=== PATIENT | male | born 1945 | race Caucasian/White ===

== ENCOUNTER 2022-03-06 23:20 | Inpatient (IN) ==
[2022-03-06] MEDS ORDERED: SODIUM CHLORIDE 0.9% 500 ML IV STA (23:36)
[2022-03-06] MEDS ORDERED: PROMETHAZINE 25 MG/1 ML VIAL IM PRN (23:37)
[2022-03-06] MEDS ORDERED: ACETAMINOPHEN 325 MG TABLET PO PRN (23:37)
[2022-03-07] MEDS: PIPERACILLIN/TAZOBACTAM 3,375 MG in SODIUM CHLORIDE 0.9% 100 ML IV SCH ×3 (00:15→17:37)
[2022-03-07] MEDS: LACTATED RINGERS 1,000 ML IV SCH ×4 (02:00→20:32)
[2022-03-07 05:36] LABS: Basophils % 0.5 % (0.0-0.8); Eosinophils % 0.2 % (0.00-10.9); Hematocrit 42.7 VOL% (42.0-52.0); Hemoglobin 14.4 GM/DL (14.0-18.0); Immature Granulocytes % 0.2 %; Immature Granulocytes Absolute 0.01 #; Lymphocytes # 0.9 10*3/uL (1.4-4.0); Lymphocytes % 15.1 % (21.2-54.2); Mean Corpuscular HGB Conc 33.7 GM/DL (32-36); Mean Corpuscular Volume 97.5 FL (87-102); Mean Platelet Volume 8.9 FL (9.6-12.0); Monocytes # 0.9 10*3/uL (0.11-0.8); Monocytes % 13.6 % (1.7-12.7); Neutrophils % 70.4 % (38.7-73.9); Platelet Count 240 T/CUMM (130-400); Red Blood Count 4.38 MC/CUMM (3.8-5.5); Red Cell Distribution Width 12.2 % (9.3-17.3); White Blood Count 6.2 T/CUMM (4-12)
[2022-03-07 05:54] LABS: Albumin 3.1 G/DL (3.4-5.0); Bilirubin,Total 1.2 MG/DL (0.20-1.00); Calcium 8.8 MG/DL (8.5-10.1); Osmolality,Calculated 289.3 MOS/KG (273-304); Potassium 3.5 MMOL/L (3.5-5.1); Total Protein 7.4 G/DL (6.4-8.2)
[2022-03-07] MEDS: PANTOPRAZOLE 40 MG TABLET PO SCH (08:52)
[2022-03-07] MEDS: ONDANSETRON 4 MG/2 ML VIAL IV PRN (10:31)
[2022-03-07] MEDS: MORPHINE 2 MG/1 ML SYRINGE IV PRN ×2 (13:24→19:07)
[2022-03-07] MEDS ORDERED: CLINDAMYCIN INJ 900 MG/50 ML PREMIX IV ONE (15:12)
[2022-03-07] MEDS ORDERED: ROCURONIUM 50 MG/5 ML VIAL IV ONE (15:24)
[2022-03-07] MEDS ORDERED: propofoL 200 MG/20 ML VIAL IV ONE (15:24)
[2022-03-07] MEDS ORDERED: SUCCINYLCHOLINE 200 MG/10 ML VIAL ONE (15:24)
[2022-03-07] MEDS ORDERED: LIDOCAINE 2% 5 ML VIAL ONE (15:24)
[2022-03-07] MEDS ORDERED: fentaNYL 100 MCG/2 ML VIAL ONE ×2 (15:25→16:36)
[2022-03-07] MEDS ORDERED: BUPIVACAINE MPF 0.25% 10 ML VIAL ONE (16:27)
[2022-03-07] MEDS ORDERED: DILTIAZEM 50 MG/10 ML VIAL IV ONE (16:33)
[2022-03-07] MEDS ORDERED: ONDANSETRON 4 MG/2 ML VIAL ONE (16:47)
[2022-03-07] MEDS ORDERED: SODIUM CHLORIDE 0.9% 100 ML IV ONE (16:47)
[2022-03-07] MEDS ORDERED: SEVOFLURANE 1 UNIT/15 MINUTE INH ONE ×3 (16:47→17:47)
[2022-03-07] MEDS ORDERED: EPINEPHrine 1 MG/ML VIAL ONE (16:47)
[2022-03-07] MEDS ORDERED: PHENYLEPHRINE 1 MG/10 ML SYRINGE IV ONE (16:47)
[2022-03-07] MEDS ORDERED: INDOCYANINE GREEN 25 MG VIAL IV ONE (16:52)
[2022-03-07] MEDS ORDERED: LACTATED RINGERS 1,000 ML IV ONE ×2 (16:57→18:24)
[2022-03-07] MEDS ORDERED: SUGAMMADEX 200 MG/2 ML VIAL IV ONE (17:31)
[2022-03-07] MEDS: DILTIAZEM INJ 100 MG in SODIUM CHLORIDE 0.9% 100 ML IV SCH (18:05)
[2022-03-07 18:17] LABS: Arterial Base Excess iSTAT 3 MMOL/L (-2.5-2.5); Arterial Bicarbonate iSTAT 28.9 MMOL/L (20-26); Arterial O2 Saturation iSTAT 99 % (95-100); Arterial PCO2 iSTAT 46 MM HG (35-48); Arterial PO2 iSTAT 129 MM HG (80-95); Arterial Total CO2 iSTAT 30 MMO/L (23-27); Arterial pH iSTAT 7.405 (7.35-7.45)
[2022-03-07 18:40] LABS: Basophils % 0.5 % (0.0-0.8); Eosinophils % 0.5 % (0.00-10.9); Hematocrit 47.8 VOL% (42.0-52.0); Immature Granulocytes % 0.3 %; Immature Granulocytes Absolute 0.02 #; Lymphocytes # 1.4 10*3/uL (1.4-4.0); Lymphocytes % 21.5 % (21.2-54.2); Mean Corpuscular HGB Conc 33.5 GM/DL (32-36); Mean Corpuscular Volume 97.6 FL (87-102); Mean Platelet Volume 8.6 FL (9.6-12.0); Monocytes # 0.7 10*3/uL (0.11-0.8); Neutrophils % 67.2 % (38.7-73.9); Platelet Count 256 T/CUMM (130-400); Red Cell Distribution Width 12.4 % (9.3-17.3); White Blood Count 6.5 T/CUMM (4-12)
[2022-03-07 18:55] LABS: Bilirubin,Total 1.2 MG/DL (0.20-1.00); Calcium 8.6 MG/DL (8.5-10.1); Osmolality,Calculated 281.7 MOS/KG (273-304); Potassium 3.4 MMOL/L (3.5-5.1); Total Protein 7.3 G/DL (6.4-8.2)
[2022-03-07] MEDS ORDERED: LORazepam 2 MG/1 ML VIAL IV ONE (21:30)
[2022-03-08] MEDS: DILTIAZEM INJ 100 MG in SODIUM CHLORIDE 0.9% 100 ML IV SCH ×4 (00:45→23:27)
[2022-03-08 01:10] LABS: Basophils % 0.2 % (0.0-0.8); Immature Granulocytes % 0.7 %; Immature Granulocytes Absolute 0.06 #; Lymphocytes # 0.4 10*3/uL (1.4-4.0); Lymphocytes % 4.4 % (21.2-54.2); Mean Corpuscular HGB Conc 33.3 GM/DL (32-36); Mean Corpuscular Volume 97.7 FL (87-102); Mean Platelet Volume 8.4 FL (9.6-12.0); Monocytes # 0.7 10*3/uL (0.11-0.8); Monocytes % 8.3 % (1.7-12.7); Neutrophils % 86.4 % (38.7-73.9); Platelet Count 217 T/CUMM (130-400); Red Cell Distribution Width 12.3 % (9.3-17.3); White Blood Count 8.2 T/CUMM (4-12)
[2022-03-08 01:35] LABS: Calcium 8.1 MG/DL (8.5-10.1); Potassium 3.3 MMOL/L (3.5-5.1)
[2022-03-08 01:59] LABS: Lymphocytes 4 % (20-55); Platelet Estimate Normal; Total Cells Counted 100
[2022-03-08] MEDS: LACTATED RINGERS 1,000 ML IV SCH (06:21)
[2022-03-08] MEDS: POTASSIUM CHLORIDE RIDER 10 MEQ/100 ML PREMIX IV PRN ×4 (09:54→14:17)
[2022-03-08] MEDS: ATORVASTATIN 20 MG TABLET PO SCH (11:38)
[2022-03-08] MEDS: PANTOPRAZOLE 40 MG TABLET PO SCH (11:38)
[2022-03-08] MEDS: METOPROLOL SUCCINATE XL 50 MG TABLET PO SCH (11:38)
[2022-03-08] MEDS: OMEGA 3 ACID ETHYL ESTERS 1 GM CAPSULE PO SCH ×2 (11:39→11:50)
[2022-03-08] MEDS: ENOXAPARIN 40 MG/0.4 ML SYRINGE SUBCUT SCH (13:47)
[2022-03-08] MEDS: DEXT 5% NACL 0.45% KCL 40 MEQ 40 MEQ/1,000 ML BAG IV SCH ×2 (13:51→21:56)
[2022-03-08] MEDS: ONDANSETRON 4 MG/2 ML VIAL IV PRN (15:53)
[2022-03-08] MEDS: MORPHINE 2 MG/1 ML SYRINGE IV PRN (17:28)
[2022-03-08] MEDS ORDERED: LORazepam 2 MG/1 ML VIAL IM PRN (19:52)
[2022-03-08] MEDS ORDERED: LORazepam 2 MG/1 ML VIAL ONE (19:57)
[2022-03-08] MEDS: LORazepam 2 MG/1 ML VIAL IV PRN (20:20)
[2022-03-09] MEDS: DEXT 5% NACL 0.45% KCL 40 MEQ 40 MEQ/1,000 ML BAG IV SCH (05:59)
[2022-03-09 06:23] LABS: Basophils % 0.2 % (0.0-0.8); Eosinophils # 0.1 10*3/uL (0.0-0.87); Eosinophils % 0.5 % (0.00-10.9); Hematocrit 40.5 VOL% (42.0-52.0); Hemoglobin 13.6 GM/DL (14.0-18.0); Immature Granulocytes Absolute 0.11 #; Lymphocytes # 0.9 10*3/uL (1.4-4.0); Lymphocytes % 8.2 % (21.2-54.2); Mean Corpuscular HGB Conc 33.6 GM/DL (32-36); Mean Corpuscular Volume 97.6 FL (87-102); Mean Platelet Volume 9.6 FL (9.6-12.0); Monocytes # 1.2 10*3/uL (0.11-0.8); Monocytes % 10.5 % (1.7-12.7); Neutrophils % 79.6 % (38.7-73.9); Platelet Count 185 T/CUMM (130-400); Red Blood Count 4.15 MC/CUMM (3.8-5.5); Red Cell Distribution Width 12.3 % (9.3-17.3); White Blood Count 11.5 T/CUMM (4-12)
[2022-03-09 06:36] LABS: Macrocytosis Slight; Platelet Estimate Normal
[2022-03-09 06:57] LABS: Calcium 8.3 MG/DL (8.5-10.1); Osmolality,Calculated 268.4 MOS/KG (273-304); Potassium 5.3 MMOL/L (3.5-5.1)
[2022-03-09] MEDS ORDERED: DEXTROSE 5% NACL 0.45% 1,000 ML IV SCH (08:00)
[2022-03-09] MEDS: PANTOPRAZOLE 40 MG TABLET PO SCH (10:06)
[2022-03-09] MEDS: OMEGA 3 ACID ETHYL ESTERS 1 GM CAPSULE PO SCH (10:06)
[2022-03-09] MEDS: METOPROLOL SUCCINATE XL 50 MG TABLET PO SCH (10:06)
[2022-03-09] MEDS: ATORVASTATIN 20 MG TABLET PO SCH (10:06)
[2022-03-09] MEDS: DEXTROSE 5% NACL 0.9% 1,000 ML IV SCH ×3 (12:35→20:35)
[2022-03-09] MEDS: ENOXAPARIN 40 MG/0.4 ML SYRINGE SUBCUT SCH (13:26)
[2022-03-09] MEDS: DILTIAZEM INJ 100 MG in SODIUM CHLORIDE 0.9% 100 ML IV SCH (17:38)
[2022-03-09] MEDS: LORazepam 2 MG/1 ML VIAL IV PRN (23:21)
[2022-03-10 05:15] LABS: Basophils % 0.3 % (0.0-0.8); Eosinophils # 0.2 10*3/uL (0.0-0.87); Eosinophils % 1.8 % (0.00-10.9); Hematocrit 40.4 VOL% (42.0-52.0); Hemoglobin 13.2 GM/DL (14.0-18.0); Immature Granulocytes % 0.8 %; Immature Granulocytes Absolute 0.07 #; Lymphocytes # 0.5 10*3/uL (1.4-4.0); Lymphocytes % 5.9 % (21.2-54.2); Mean Corpuscular HGB Conc 32.7 GM/DL (32-36); Mean Platelet Volume 8.9 FL (9.6-12.0); Monocytes # 0.7 10*3/uL (0.11-0.8); Monocytes % 7.4 % (1.7-12.7); Neutrophils % 83.8 % (38.7-73.9); Platelet Count 210 T/CUMM (130-400); Red Blood Count 4.08 MC/CUMM (3.8-5.5); White Blood Count 8.9 T/CUMM (4-12)
[2022-03-10] MEDS: DEXTROSE 5% NACL 0.9% 1,000 ML IV SCH (05:46)
[2022-03-10 05:48] LABS: Calcium 8.1 MG/DL (8.5-10.1); Osmolality,Calculated 275.7 MOS/KG (273-304); Potassium 3.9 MMOL/L (3.5-5.1)
[2022-03-10] MEDS: PANTOPRAZOLE 40 MG TABLET PO SCH (08:27)
[2022-03-10] MEDS: ATORVASTATIN 20 MG TABLET PO SCH (08:27)
[2022-03-10] MEDS: METOPROLOL SUCCINATE XL 50 MG TABLET PO SCH (08:27)
[2022-03-10] MEDS: OMEGA 3 ACID ETHYL ESTERS 1 GM CAPSULE PO SCH (08:27)
[2022-03-10] MEDS: ALBUTEROL/IPRATROPIUM 3 ML NEB RESP TX SCH ×3 (13:00→23:53)
[2022-03-10] MEDS: ENOXAPARIN 40 MG/0.4 ML SYRINGE SUBCUT SCH (15:01)
[2022-03-10] MEDS: guaiFENesin/DM ER 600-30 MG TABLET PO SCH ×2 (15:01→20:29)
[2022-03-10] MEDS: DILTIAZEM INJ 100 MG in SODIUM CHLORIDE 0.9% 100 ML IV SCH ×2 (18:42→23:30)
[2022-03-10] MEDS ORDERED: QUEtiapine 25 MG TABLET PO SCH (21:00)
[2022-03-10] MEDS: HALOPERIDOL 5 MG/ML AMP IM PRN (23:49)
[2022-03-11] MEDS ORDERED: LORazepam 2 MG/1 ML VIAL IV ONE (00:50)
[2022-03-11] MEDS ORDERED: LORazepam 2 MG/1 ML VIAL ONE (00:54)
[2022-03-11 05:54] LABS: Basophils % 0.4 % (0.0-0.8); Eosinophils # 0.1 10*3/uL (0.0-0.87); Eosinophils % 0.9 % (0.00-10.9); Hematocrit 41.7 VOL% (42.0-52.0); Immature Granulocytes % 0.7 %; Immature Granulocytes Absolute 0.06 #; Lymphocytes # 0.7 10*3/uL (1.4-4.0); Lymphocytes % 8.4 % (21.2-54.2); Mean Corpuscular HGB Conc 33.6 GM/DL (32-36); Mean Corpuscular Volume 95.2 FL (87-102); Mean Platelet Volume 8.7 FL (9.6-12.0); Monocytes # 1.1 10*3/uL (0.11-0.8); Monocytes % 13.8 % (1.7-12.7); Neutrophils % 75.8 % (38.7-73.9); Platelet Count 264 T/CUMM (130-400); Red Blood Count 4.38 MC/CUMM (3.8-5.5); Red Cell Distribution Width 12.1 % (9.3-17.3); White Blood Count 8.1 T/CUMM (4-12)
[2022-03-11 06:14] LABS: Calcium 8.2 MG/DL (8.5-10.1); Osmolality,Calculated 281.4 MOS/KG (273-304); Potassium 3.7 MMOL/L (3.5-5.1)
[2022-03-11] MEDS: ALBUTEROL/IPRATROPIUM 3 ML NEB RESP TX SCH ×3 (07:30→19:15)
[2022-03-11] MEDS: MORPHINE 2 MG/1 ML SYRINGE IV PRN ×2 (08:18→18:00)
[2022-03-11] MEDS: ATORVASTATIN 20 MG TABLET PO SCH (08:34)
[2022-03-11] MEDS: OMEGA 3 ACID ETHYL ESTERS 1 GM CAPSULE PO SCH (08:35)
[2022-03-11] MEDS: METOPROLOL SUCCINATE XL 50 MG TABLET PO SCH (08:35)
[2022-03-11] MEDS: guaiFENesin/DM ER 600-30 MG TABLET PO SCH ×2 (08:35→20:23)
[2022-03-11] MEDS: PANTOPRAZOLE 40 MG TABLET PO SCH (08:35)
[2022-03-11] MEDS: HALOPERIDOL 5 MG/ML AMP IM PRN (08:42)
[2022-03-11] MEDS: DILTIAZEM INJ 100 MG in SODIUM CHLORIDE 0.9% 100 ML IV SCH ×3 (08:52→21:16)
[2022-03-11] MEDS ORDERED: OLANZapine 10 MG VIAL IM ONE (09:32)
[2022-03-11] MEDS ORDERED: METOPROLOL TARTRATE 5 MG/5 ML VIAL IV ONE ×2 (09:33→14:22)
[2022-03-11] MEDS ORDERED: KETOROLAC 30 MG/1 ML VIAL IV ONE (10:12)
[2022-03-11] MEDS: PIPERACILLIN/TAZOBACTAM 3,375 MG in SODIUM CHLORIDE 0.9% 100 ML IV SCH ×2 (10:50→17:22)
[2022-03-11] MEDS: PANTOPRAZOLE 40 MG VIAL IV SCH ×2 (10:55→21:16)
[2022-03-11] MEDS: VANCOMYCIN INJ 1,250 MG in SODIUM CHLORIDE 0.9% 250 ML IV SCH ×2 (11:03→23:38)
[2022-03-11] MEDS: METOPROLOL TARTRATE 5 MG/5 ML VIAL IV SCH ×3 (12:11→23:26)
[2022-03-11] MEDS: ENOXAPARIN 40 MG/0.4 ML SYRINGE SUBCUT SCH (13:08)
[2022-03-11] MEDS: FAT EMULSION 20% 250 ML IV SCH (14:05)
[2022-03-11] MEDS ORDERED: DIGOXIN 0.5 MG/2 ML AMP IV ONE ×2 (14:41→15:15)
[2022-03-11] MEDS: MULTIVITAMIN INJ 10 ML in AMINO ACIDS/DEXT/LYTES 4.25-5% 2,000 ML IV SCH (17:13)
[2022-03-11] MEDS: ACETAMINOPHEN 650 MG SUPP RECTAL PRN (17:33)
[2022-03-11] MEDS: OLANZapine 10 MG VIAL IM PRN (17:35)
[2022-03-12] MEDS: PIPERACILLIN/TAZOBACTAM 3,375 MG in SODIUM CHLORIDE 0.9% 100 ML IV SCH ×3 (02:50→17:33)
[2022-03-12] MEDS: METOPROLOL TARTRATE 5 MG/5 ML VIAL IV SCH ×3 (05:12→17:27)
[2022-03-12 05:14] LABS: Basophils % 0.3 % (0.0-0.8); Eosinophils # 0.2 10*3/uL (0.0-0.87); Eosinophils % 2.1 % (0.00-10.9); Hematocrit 36.8 VOL% (42.0-52.0); Hemoglobin 12.4 GM/DL (14.0-18.0); Immature Granulocytes % 0.7 %; Immature Granulocytes Absolute 0.08 #; Lymphocytes # 0.8 10*3/uL (1.4-4.0); Lymphocytes % 7.6 % (21.2-54.2); Mean Corpuscular HGB Conc 33.7 GM/DL (32-36); Mean Corpuscular Volume 96.1 FL (87-102); Mean Platelet Volume 8.6 FL (9.6-12.0); Monocytes % 9.2 % (1.7-12.7); Neutrophils % 80.1 % (38.7-73.9); Platelet Count 251 T/CUMM (130-400); Red Blood Count 3.83 MC/CUMM (3.8-5.5); Red Cell Distribution Width 12.4 % (9.3-17.3); White Blood Count 10.7 T/CUMM (4-12)
[2022-03-12 05:36] LABS: Calcium 7.9 MG/DL (8.5-10.1); Osmolality,Calculated 286.1 MOS/KG (273-304); Potassium 3.7 MMOL/L (3.5-5.1)
[2022-03-12 05:40] LABS: Phosphorous 2.4 MG/DL (2.5-4.9)
[2022-03-12] MEDS: ALBUTEROL/IPRATROPIUM 3 ML NEB RESP TX SCH ×4 (06:54→19:10)
[2022-03-12] MEDS: PANTOPRAZOLE 40 MG VIAL IV SCH ×2 (10:36→20:26)
[2022-03-12] MEDS: OMEGA 3 ACID ETHYL ESTERS 1 GM CAPSULE PO SCH (12:18)
[2022-03-12] MEDS: ATORVASTATIN 20 MG TABLET PO SCH (12:18)
[2022-03-12] MEDS: guaiFENesin/DM ER 600-30 MG TABLET PO SCH ×2 (12:18→20:27)
[2022-03-12] MEDS: ENOXAPARIN 40 MG/0.4 ML SYRINGE SUBCUT SCH (12:27)
[2022-03-12] MEDS: VANCOMYCIN INJ 1,250 MG in SODIUM CHLORIDE 0.9% 250 ML IV SCH ×2 (14:12→23:04)
[2022-03-12] MEDS: FAT EMULSION 20% 250 ML IV SCH (14:45)
[2022-03-12] MEDS: MULTIVITAMIN INJ 10 ML in AMINO ACIDS/DEXT/LYTES 4.25-5% 2,000 ML IV SCH (14:45)
[2022-03-12] MEDS: DILTIAZEM INJ 100 MG in SODIUM CHLORIDE 0.9% 100 ML IV SCH (17:01)
[2022-03-13] MEDS: ALBUTEROL/IPRATROPIUM 3 ML NEB RESP TX SCH ×3 (00:05→07:00)
[2022-03-13] MEDS: METOPROLOL TARTRATE 5 MG/5 ML VIAL IV SCH ×4 (00:37→18:40)
[2022-03-13] MEDS: PIPERACILLIN/TAZOBACTAM 3,375 MG in SODIUM CHLORIDE 0.9% 100 ML IV SCH ×3 (02:04→23:35)
[2022-03-13 05:15] LABS: Basophils % 0.4 % (0.0-0.8); Eosinophils # 0.4 10*3/uL (0.0-0.87); Eosinophils % 4.3 % (0.00-10.9); Hematocrit 38.2 VOL% (42.0-52.0); Hemoglobin 12.9 GM/DL (14.0-18.0); Immature Granulocytes % 1.4 %; Immature Granulocytes Absolute 0.13 #; Lymphocytes # 1.2 10*3/uL (1.4-4.0); Lymphocytes % 12.6 % (21.2-54.2); Mean Corpuscular HGB Conc 33.8 GM/DL (32-36); Mean Corpuscular Volume 96.5 FL (87-102); Mean Platelet Volume 8.9 FL (9.6-12.0); Monocytes # 0.8 10*3/uL (0.11-0.8); Monocytes % 8.4 % (1.7-12.7); Neutrophils % 72.9 % (38.7-73.9); Platelet Count 283 T/CUMM (130-400); Red Blood Count 3.96 MC/CUMM (3.8-5.5); Red Cell Distribution Width 12.5 % (9.3-17.3); White Blood Count 9.6 T/CUMM (4-12)
[2022-03-13 05:43] LABS: Calcium 8.1 MG/DL (8.5-10.1); Osmolality,Calculated 286.1 MOS/KG (273-304); Potassium 3.8 MMOL/L (3.5-5.1)
[2022-03-13] MEDS: ATORVASTATIN 20 MG TABLET PO SCH (08:11)
[2022-03-13] MEDS: guaiFENesin/DM ER 600-30 MG TABLET PO SCH ×2 (08:11→22:21)
[2022-03-13] MEDS: OMEGA 3 ACID ETHYL ESTERS 1 GM CAPSULE PO SCH (08:11)
[2022-03-13] MEDS: PANTOPRAZOLE 40 MG VIAL IV SCH ×2 (09:07→22:12)
[2022-03-13] MEDS: FUROSEMIDE 40 MG/4 ML VIAL IV SCH ×2 (11:45→14:00)
[2022-03-13] MEDS: HALOPERIDOL 5 MG/ML AMP IM PRN (11:45)
[2022-03-13] MEDS ORDERED: DEXTROSE 10% 250 ML IV ONE (12:12)
[2022-03-13] MEDS: VANCOMYCIN INJ 1,250 MG in SODIUM CHLORIDE 0.9% 250 ML IV SCH ×2 (13:06→23:01)
[2022-03-13] MEDS: OLANZapine 10 MG VIAL IM PRN (13:06)
[2022-03-13] MEDS: ENOXAPARIN 40 MG/0.4 ML SYRINGE SUBCUT SCH (13:08)
[2022-03-13] MEDS ORDERED: LEVALBUTEROL 1.25 MG/3 ML NEB RESP TX PRN (13:28)
[2022-03-13] MEDS: MORPHINE 2 MG/1 ML SYRINGE IV PRN (13:40)
[2022-03-13] MEDS ORDERED: METOPROLOL TARTRATE 5 MG/5 ML VIAL IV ONE (13:46)
[2022-03-13] MEDS ORDERED: DIGOXIN 0.5 MG/2 ML AMP IV ONE ×2 (13:54)
[2022-03-13] MEDS: DILTIAZEM INJ 100 MG in SODIUM CHLORIDE 0.9% 100 ML IV SCH ×2 (15:25→20:58)
[2022-03-13] MEDS: MULTIVITAMIN INJ 10 ML in AMINO ACIDS/DEXT/LYTES 4.25-5% 2,000 ML IV SCH (18:37)
[2022-03-13] MEDS: FAT EMULSION 20% 250 ML IV SCH (18:37)
[2022-03-13] MEDS: ENOXAPARIN 80 MG/0.8 ML SYRINGE SUBCUT SCH (23:09)
[2022-03-14] MEDS: METOPROLOL TARTRATE 5 MG/5 ML VIAL IV SCH ×4 (01:12→17:32)
[2022-03-14] MEDS: PIPERACILLIN/TAZOBACTAM 3,375 MG in SODIUM CHLORIDE 0.9% 100 ML IV SCH ×3 (03:14→17:33)
[2022-03-14] MEDS: DILTIAZEM INJ 100 MG in SODIUM CHLORIDE 0.9% 100 ML IV SCH ×3 (04:58→17:00)
[2022-03-14 05:52] LABS: Basophils # 0.1 10*3/uL (0.0-0.2); Basophils % 0.5 % (0.0-0.8); Eosinophils # 0.4 10*3/uL (0.0-0.87); Eosinophils % 3.1 % (0.00-10.9); Hematocrit 43.2 VOL% (42.0-52.0); Hemoglobin 14.4 GM/DL (14.0-18.0); Immature Granulocytes Absolute 0.26 #; Lymphocytes # 1.6 10*3/uL (1.4-4.0); Lymphocytes % 12.5 % (21.2-54.2); Mean Corpuscular HGB Conc 33.3 GM/DL (32-36); Mean Corpuscular Volume 96.6 FL (87-102); Mean Platelet Volume 9.4 FL (9.6-12.0); Monocytes % 7.9 % (1.7-12.7); Platelet Count 362 T/CUMM (130-400); Red Blood Count 4.47 MC/CUMM (3.8-5.5); Red Cell Distribution Width 12.5 % (9.3-17.3); White Blood Count 12.9 T/CUMM (4-12)
[2022-03-14 06:10] LABS: Calcium 8.5 MG/DL (8.5-10.1); Osmolality,Calculated 286.5 MOS/KG (273-304); Potassium 3.6 MMOL/L (3.5-5.1)
[2022-03-14 06:22] LABS: Platelet Estimate Adequate
[2022-03-14] MEDS: MULTIVITAMIN INJ 10 ML in AMINO ACIDS/DEXT/LYTES 4.25-5% 2,000 ML IV SCH ×2 (08:30→14:44)
[2022-03-14] MEDS: OMEGA 3 ACID ETHYL ESTERS 1 GM CAPSULE PO SCH (08:41)
[2022-03-14] MEDS: guaiFENesin/DM ER 600-30 MG TABLET PO SCH ×2 (08:41→21:14)
[2022-03-14] MEDS: ATORVASTATIN 20 MG TABLET PO SCH (08:41)
[2022-03-14] MEDS: ENOXAPARIN 80 MG/0.8 ML SYRINGE SUBCUT SCH ×2 (10:04→20:17)
[2022-03-14] MEDS: PANTOPRAZOLE 40 MG VIAL IV SCH ×2 (10:13→20:18)
[2022-03-14] MEDS: FUROSEMIDE 40 MG/4 ML VIAL IV SCH (10:15)
[2022-03-14] MEDS: ACETAMINOPHEN 650 MG SUPP RECTAL PRN (11:24)
[2022-03-14] MEDS: HALOPERIDOL 5 MG/ML AMP IM PRN ×2 (13:19→20:18)
[2022-03-14] MEDS: FAT EMULSION 20% 250 ML IV SCH (14:38)
[2022-03-14] MEDS: OLANZapine 10 MG VIAL IM PRN (23:39)
[2022-03-15] MEDS: METOPROLOL TARTRATE 5 MG/5 ML VIAL IV SCH ×5 (00:26→23:28)
[2022-03-15] MEDS: DILTIAZEM INJ 100 MG in SODIUM CHLORIDE 0.9% 100 ML IV SCH ×4 (01:45→17:36)
[2022-03-15] MEDS: PIPERACILLIN/TAZOBACTAM 3,375 MG in SODIUM CHLORIDE 0.9% 100 ML IV SCH ×3 (01:47→17:50)
[2022-03-15] MEDS: HALOPERIDOL 5 MG/ML AMP IM PRN ×3 (04:24→23:48)
[2022-03-15 05:03] LABS: Basophils # 0.1 10*3/uL (0.0-0.2); Basophils % 0.6 % (0.0-0.8); Eosinophils # 0.5 10*3/uL (0.0-0.87); Eosinophils % 4.1 % (0.00-10.9); Hematocrit 41.9 VOL% (42.0-52.0); Hemoglobin 14.1 GM/DL (14.0-18.0); Immature Granulocytes % 1.9 %; Immature Granulocytes Absolute 0.22 #; Lymphocytes # 1.6 10*3/uL (1.4-4.0); Lymphocytes % 14.1 % (21.2-54.2); Mean Corpuscular HGB Conc 33.7 GM/DL (32-36); Mean Platelet Volume 8.7 FL (9.6-12.0); Neutrophils % 70.3 % (38.7-73.9); Platelet Count 344 T/CUMM (130-400); Red Blood Count 4.41 MC/CUMM (3.8-5.5); Red Cell Distribution Width 12.4 % (9.3-17.3); White Blood Count 11.6 T/CUMM (4-12)
[2022-03-15 05:30] LABS: Calcium 8.3 MG/DL (8.5-10.1); Osmolality,Calculated 287.5 MOS/KG (273-304); Potassium 3.5 MMOL/L (3.5-5.1)
[2022-03-15] MEDS: ENOXAPARIN 80 MG/0.8 ML SYRINGE SUBCUT SCH ×2 (08:57→20:59)
[2022-03-15] MEDS: FUROSEMIDE 40 MG/4 ML VIAL IV SCH (09:01)
[2022-03-15] MEDS: PANTOPRAZOLE 40 MG VIAL IV SCH ×2 (09:03→20:59)
[2022-03-15] MEDS: ATORVASTATIN 20 MG TABLET PO SCH (09:04)
[2022-03-15] MEDS: OMEGA 3 ACID ETHYL ESTERS 1 GM CAPSULE PO SCH (09:04)
[2022-03-15] MEDS: guaiFENesin/DM ER 600-30 MG TABLET PO SCH ×2 (09:04→20:59)
[2022-03-15] MEDS: MULTIVITAMIN INJ 10 ML in AMINO ACIDS/DEXT/LYTES 4.25-5% 2,000 ML IV SCH (13:05)
[2022-03-15] MEDS: FAT EMULSION 20% 250 ML IV SCH (13:06)
[2022-03-16] MEDS: PIPERACILLIN/TAZOBACTAM 3,375 MG in SODIUM CHLORIDE 0.9% 100 ML IV SCH ×3 (01:28→18:15)
[2022-03-16] MEDS ORDERED: MORPHINE 2 MG/1 ML SYRINGE IV ONE (01:32)
[2022-03-16] MEDS: METOPROLOL TARTRATE 5 MG/5 ML VIAL IV SCH ×4 (05:09→23:55)
[2022-03-16 05:44] LABS: Basophils # 0.1 10*3/uL (0.0-0.2); Basophils % 0.6 % (0.0-0.8); Eosinophils # 0.4 10*3/uL (0.0-0.87); Eosinophils % 3.1 % (0.00-10.9); Hematocrit 41.2 VOL% (42.0-52.0); Hemoglobin 13.9 GM/DL (14.0-18.0); Immature Granulocytes % 2.1 %; Immature Granulocytes Absolute 0.27 #; Lymphocytes # 1.7 10*3/uL (1.4-4.0); Lymphocytes % 13.6 % (21.2-54.2); Mean Corpuscular HGB Conc 33.7 GM/DL (32-36); Mean Corpuscular Volume 95.2 FL (87-102); Mean Platelet Volume 8.9 FL (9.6-12.0); Monocytes # 1.1 10*3/uL (0.11-0.8); Monocytes % 8.6 % (1.7-12.7); Platelet Count 407 T/CUMM (130-400); Red Blood Count 4.33 MC/CUMM (3.8-5.5); Red Cell Distribution Width 12.1 % (9.3-17.3); White Blood Count 12.8 T/CUMM (4-12)
[2022-03-16 06:14] LABS: Calcium 8.4 MG/DL (8.5-10.1); Osmolality,Calculated 286.5 MOS/KG (273-304); Potassium 3.5 MMOL/L (3.5-5.1)
[2022-03-16] MEDS: DILTIAZEM INJ 100 MG in SODIUM CHLORIDE 0.9% 100 ML IV SCH ×3 (08:23→20:18)
[2022-03-16] MEDS: ENOXAPARIN 80 MG/0.8 ML SYRINGE SUBCUT SCH ×2 (09:59→20:19)
[2022-03-16] MEDS: PANTOPRAZOLE 40 MG VIAL IV SCH ×2 (10:02→20:19)
[2022-03-16] MEDS: FUROSEMIDE 40 MG/4 ML VIAL IV SCH (10:04)
[2022-03-16] MEDS: ATORVASTATIN 20 MG TABLET PO SCH (10:07)
[2022-03-16] MEDS: guaiFENesin/DM ER 600-30 MG TABLET PO SCH ×2 (10:07→20:19)
[2022-03-16] MEDS: OMEGA 3 ACID ETHYL ESTERS 1 GM CAPSULE PO SCH (10:07)
[2022-03-16] MEDS: MULTIVITAMIN INJ 10 ML in AMINO ACIDS/DEXT/LYTES 4.25-5% 2,000 ML IV SCH (10:40)
[2022-03-16] MEDS: ACETAMINOPHEN 650 MG SUPP RECTAL PRN ×2 (11:17→18:12)
[2022-03-16] MEDS: FAT EMULSION 20% 250 ML IV SCH (14:38)
[2022-03-17] MEDS: PIPERACILLIN/TAZOBACTAM 3,375 MG in SODIUM CHLORIDE 0.9% 100 ML IV SCH ×2 (01:11→09:29)
[2022-03-17] MEDS: METOPROLOL TARTRATE 5 MG/5 ML VIAL IV SCH ×3 (05:18→17:03)
[2022-03-17 06:14] LABS: Basophils # 0.1 10*3/uL (0.0-0.2); Basophils % 0.6 % (0.0-0.8); Eosinophils # 0.4 10*3/uL (0.0-0.87); Eosinophils % 2.7 % (0.00-10.9); Hematocrit 41.2 VOL% (42.0-52.0); Hemoglobin 14.1 GM/DL (14.0-18.0); Immature Granulocytes % 1.8 %; Immature Granulocytes Absolute 0.29 #; Lymphocytes # 1.8 10*3/uL (1.4-4.0); Lymphocytes % 11.6 % (21.2-54.2); Mean Corpuscular HGB Conc 34.2 GM/DL (32-36); Mean Corpuscular Volume 94.1 FL (87-102); Mean Platelet Volume 8.9 FL (9.6-12.0); Monocytes # 1.2 10*3/uL (0.11-0.8); Monocytes % 7.7 % (1.7-12.7); Neutrophils % 75.6 % (38.7-73.9); Platelet Count 457 T/CUMM (130-400); Red Blood Count 4.38 MC/CUMM (3.8-5.5); Red Cell Distribution Width 12.2 % (9.3-17.3); White Blood Count 15.8 T/CUMM (4-12)
[2022-03-17] MEDS: DILTIAZEM INJ 100 MG in SODIUM CHLORIDE 0.9% 100 ML IV SCH ×2 (06:28→20:58)
[2022-03-17 06:39] LABS: Calcium 8.4 MG/DL (8.5-10.1); Osmolality,Calculated 285.5 MOS/KG (273-304); Potassium 3.6 MMOL/L (3.5-5.1)
[2022-03-17] MEDS ORDERED: ZIPRASIDONE 20 MG/1 ML VIAL IM PRN (08:00)
[2022-03-17] MEDS: MULTIVITAMIN INJ 10 ML in AMINO ACIDS/DEXT/LYTES 4.25-5% 2,000 ML IV SCH (09:29)
[2022-03-17] MEDS: guaiFENesin/DM ER 600-30 MG TABLET PO SCH ×2 (09:30→22:04)
[2022-03-17] MEDS: OMEGA 3 ACID ETHYL ESTERS 1 GM CAPSULE PO SCH (09:30)
[2022-03-17] MEDS: ENOXAPARIN 80 MG/0.8 ML SYRINGE SUBCUT SCH ×2 (09:32→22:04)
[2022-03-17] MEDS: FUROSEMIDE 40 MG/4 ML VIAL IV SCH (09:33)
[2022-03-17] MEDS: PANTOPRAZOLE 40 MG VIAL IV SCH ×2 (09:33→22:40)
[2022-03-17] MEDS: ATORVASTATIN 20 MG TABLET PO SCH (09:33)
[2022-03-17 12:05] LABS: Urine Appearance Clear (Clear); Urine Color Yellow (Yellow); Urine pH 5.5 (4.5-8.0)
[2022-03-17 12:06] LABS: Bilirubin,Urine Negative (Negative); Blood, Urine Trace mg/dL (Negative); Glucose,Urine (UA) Negative (Negative); Ketones,Urine Negative (Negative); Nitrite,Urine Negative (Negative); Protein,Urine 30 mg/dL (Negative); Urine Specific Gravity >= 1.030 (1.001-1.035); Urine Urobilinogen 0.2 eU/dL (<2.0)
[2022-03-17 12:07] LABS: Bacteria,Urine Occasional /HPF (Few); Hyaline Casts,Urine 1 /LPF (0-3); Mucus,Urine Occasional /LPF (Occasional)
[2022-03-17] MEDS: LEVOFLOXACIN INJ 750 MG/150 ML PREMIX IV SCH (13:04)
[2022-03-17] MEDS: FAT EMULSION 20% 250 ML IV SCH (13:07)
[2022-03-17] MEDS ORDERED: METOPROLOL TARTRATE 5 MG/5 ML VIAL IV ONE (14:12)
[2022-03-17] MEDS: DIGOXIN 0.5 MG/2 ML AMP IV ONE ×2 (16:24→17:51)
[2022-03-18] MEDS: METOPROLOL TARTRATE 5 MG/5 ML VIAL IV SCH ×3 (00:31→12:38)
[2022-03-18 04:37] LABS: Basophils # 0.1 10*3/uL (0.0-0.2); Basophils % 0.9 % (0.0-0.8); Eosinophils # 0.3 10*3/uL (0.0-0.87); Hematocrit 42.5 VOL% (42.0-52.0); Hemoglobin 14.4 GM/DL (14.0-18.0); Immature Granulocytes % 2.2 %; Immature Granulocytes Absolute 0.29 #; Lymphocytes # 2.2 10*3/uL (1.4-4.0); Lymphocytes % 16.6 % (21.2-54.2); Mean Corpuscular HGB Conc 33.9 GM/DL (32-36); Mean Corpuscular Volume 94.2 FL (87-102); Mean Platelet Volume 8.9 FL (9.6-12.0); Monocytes # 1.3 10*3/uL (0.11-0.8); Monocytes % 9.9 % (1.7-12.7); Neutrophils % 68.4 % (38.7-73.9); Platelet Count 498 T/CUMM (130-400); Red Blood Count 4.51 MC/CUMM (3.8-5.5); Red Cell Distribution Width 12.2 % (9.3-17.3); White Blood Count 13.4 T/CUMM (4-12)
[2022-03-18 04:54] LABS: Calcium 8.6 MG/DL (8.5-10.1); Osmolality,Calculated 285.7 MOS/KG (273-304); Potassium 3.6 MMOL/L (3.5-5.1)
[2022-03-18] MEDS: MULTIVITAMIN INJ 10 ML in AMINO ACIDS/DEXT/LYTES 4.25-5% 2,000 ML IV SCH (05:17)
[2022-03-18] MEDS: ENOXAPARIN 80 MG/0.8 ML SYRINGE SUBCUT SCH ×2 (11:59→21:47)
[2022-03-18] MEDS: FUROSEMIDE 40 MG/4 ML VIAL IV SCH (12:02)
[2022-03-18] MEDS: PANTOPRAZOLE 40 MG VIAL IV SCH ×2 (12:06→21:47)
[2022-03-18] MEDS: guaiFENesin/DM ER 600-30 MG TABLET PO SCH ×2 (12:11→21:38)
[2022-03-18] MEDS: ATORVASTATIN 20 MG TABLET PO SCH (12:15)
[2022-03-18] MEDS: OMEGA 3 ACID ETHYL ESTERS 1 GM CAPSULE PO SCH (12:18)
[2022-03-18] MEDS: ACETAMINOPHEN 650 MG SUPP RECTAL PRN (15:39)
[2022-03-18] MEDS: FAT EMULSION 20% 250 ML IV SCH (15:59)
[2022-03-18] MEDS: LEVOFLOXACIN INJ 750 MG/150 ML PREMIX IV SCH (16:00)
[2022-03-18] MEDS: METOPROLOL TARTRATE 25 MG TABLET PO SCH (21:38)
[2022-03-19] MEDS: DILTIAZEM INJ 100 MG in SODIUM CHLORIDE 0.9% 100 ML IV SCH (04:31)
[2022-03-19 05:42] LABS: Basophils # 0.1 10*3/uL (0.0-0.2); Basophils % 0.6 % (0.0-0.8); Eosinophils # 0.2 10*3/uL (0.0-0.87); Hematocrit 42.5 VOL% (42.0-52.0); Hemoglobin 14.3 GM/DL (14.0-18.0); Immature Granulocytes % 1.4 %; Immature Granulocytes Absolute 0.24 #; Lymphocytes # 2.1 10*3/uL (1.4-4.0); Lymphocytes % 12.3 % (21.2-54.2); Mean Corpuscular HGB Conc 33.6 GM/DL (32-36); Mean Platelet Volume 8.8 FL (9.6-12.0); Monocytes # 1.6 10*3/uL (0.11-0.8); Monocytes % 9.5 % (1.7-12.7); Neutrophils % 75.2 % (38.7-73.9); Platelet Count 544 T/CUMM (130-400); Red Blood Count 4.52 MC/CUMM (3.8-5.5); Red Cell Distribution Width 12.3 % (9.3-17.3); White Blood Count 16.7 T/CUMM (4-12)
[2022-03-19 06:12] LABS: Calcium 8.7 MG/DL (8.5-10.1); Osmolality,Calculated 284.7 MOS/KG (273-304); Potassium 4.3 MMOL/L (3.5-5.1)
[2022-03-19] MEDS: FUROSEMIDE 40 MG/4 ML VIAL IV SCH (11:18)
[2022-03-19] MEDS: PANTOPRAZOLE 40 MG VIAL IV SCH ×2 (11:25→21:20)
[2022-03-19] MEDS: ENOXAPARIN 80 MG/0.8 ML SYRINGE SUBCUT SCH ×2 (11:28→21:20)
[2022-03-19] MEDS: MULTIVITAMIN INJ 10 ML in AMINO ACIDS/DEXT/LYTES 4.25-5% 2,000 ML IV SCH (11:32)
[2022-03-19] MEDS: LEVOFLOXACIN INJ 750 MG/150 ML PREMIX IV SCH (16:31)
[2022-03-19] MEDS: FAT EMULSION 20% 250 ML IV SCH (16:31)
[2022-03-19] MEDS: ATORVASTATIN 20 MG TABLET PO SCH (17:09)
[2022-03-19] MEDS: METOPROLOL TARTRATE 25 MG TABLET PO SCH ×2 (17:09→21:20)
[2022-03-19] MEDS: OMEGA 3 ACID ETHYL ESTERS 1 GM CAPSULE PO SCH (17:09)
[2022-03-19] MEDS: DILTIAZEM 60 MG TABLET PO SCH ×3 (17:09→21:20)
[2022-03-19] MEDS: guaiFENesin/DM ER 600-30 MG TABLET PO SCH ×2 (17:09→21:20)
[2022-03-19] MEDS: ACETAMINOPHEN 650 MG SUPP RECTAL PRN (17:10)
[2022-03-20] MEDS: MULTIVITAMIN INJ 10 ML in AMINO ACIDS/DEXT/LYTES 4.25-5% 2,000 ML IV SCH ×3 (00:47→18:43)
[2022-03-20 04:06] LABS: Basophils # 0.1 10*3/uL (0.0-0.2); Basophils % 0.5 % (0.0-0.8); Eosinophils # 0.2 10*3/uL (0.0-0.87); Eosinophils % 1.2 % (0.00-10.9); Hematocrit 42.4 VOL% (42.0-52.0); Hemoglobin 14.5 GM/DL (14.0-18.0); Immature Granulocytes % 1.1 %; Immature Granulocytes Absolute 0.15 #; Lymphocytes # 2.2 10*3/uL (1.4-4.0); Lymphocytes % 16.1 % (21.2-54.2); Mean Corpuscular HGB Conc 34.2 GM/DL (32-36); Mean Corpuscular Volume 94.2 FL (87-102); Mean Platelet Volume 9.2 FL (9.6-12.0); Monocytes # 1.4 10*3/uL (0.11-0.8); Monocytes % 10.7 % (1.7-12.7); Neutrophils % 70.4 % (38.7-73.9); Platelet Count 550 T/CUMM (130-400); Red Cell Distribution Width 12.2 % (9.3-17.3); White Blood Count 13.3 T/CUMM (4-12)
[2022-03-20 04:24] LABS: Calcium 8.7 MG/DL (8.5-10.1); Osmolality,Calculated 284.8 MOS/KG (273-304); Potassium 3.6 MMOL/L (3.5-5.1)
[2022-03-20] MEDS: guaiFENesin/DM ER 600-30 MG TABLET PO SCH ×2 (09:30→21:45)
[2022-03-20] MEDS: ATORVASTATIN 20 MG TABLET PO SCH (09:30)
[2022-03-20] MEDS: DILTIAZEM 60 MG TABLET PO SCH ×4 (09:30→21:45)
[2022-03-20] MEDS: OMEGA 3 ACID ETHYL ESTERS 1 GM CAPSULE PO SCH (09:30)
[2022-03-20] MEDS: METOPROLOL TARTRATE 25 MG TABLET PO SCH ×2 (09:30→21:45)
[2022-03-20] MEDS: ENOXAPARIN 80 MG/0.8 ML SYRINGE SUBCUT SCH ×2 (09:31→21:45)
[2022-03-20] MEDS: PANTOPRAZOLE 40 MG VIAL IV SCH ×2 (09:32→21:45)
[2022-03-20] MEDS: FUROSEMIDE 40 MG/4 ML VIAL IV SCH (09:32)
[2022-03-20] MEDS: LEVOFLOXACIN INJ 750 MG/150 ML PREMIX IV SCH (13:09)
[2022-03-20] MEDS: FAT EMULSION 20% 250 ML IV SCH (13:14)
[2022-03-20] MEDS: ONDANSETRON 4 MG/2 ML VIAL IV PRN (13:27)
[2022-03-21 05:42] LABS: Basophils # 0.1 10*3/uL (0.0-0.2); Basophils % 0.8 % (0.0-0.8); Eosinophils # 0.2 10*3/uL (0.0-0.87); Eosinophils % 1.7 % (0.00-10.9); Hematocrit 42.4 VOL% (42.0-52.0); Hemoglobin 14.3 GM/DL (14.0-18.0); Immature Granulocytes % 1.4 %; Immature Granulocytes Absolute 0.18 #; Lymphocytes # 2.1 10*3/uL (1.4-4.0); Mean Corpuscular HGB Conc 33.7 GM/DL (32-36); Mean Corpuscular Volume 94.9 FL (87-102); Mean Platelet Volume 9.1 FL (9.6-12.0); Monocytes # 1.6 10*3/uL (0.11-0.8); Neutrophils % 68.1 % (38.7-73.9); Platelet Count 532 T/CUMM (130-400); Red Blood Count 4.47 MC/CUMM (3.8-5.5); Red Cell Distribution Width 12.4 % (9.3-17.3); White Blood Count 13.3 T/CUMM (4-12)
[2022-03-21 06:01] LABS: Calcium 8.7 MG/DL (8.5-10.1); Osmolality,Calculated 284.8 MOS/KG (273-304); Potassium 3.5 MMOL/L (3.5-5.1)
[2022-03-21] MEDS: PANTOPRAZOLE 40 MG VIAL IV SCH ×2 (08:15→21:10)
[2022-03-21] MEDS: METOPROLOL TARTRATE 25 MG TABLET PO SCH ×2 (08:16→21:10)
[2022-03-21] MEDS: ATORVASTATIN 20 MG TABLET PO SCH (08:16)
[2022-03-21] MEDS: guaiFENesin/DM ER 600-30 MG TABLET PO SCH ×2 (08:16→21:10)
[2022-03-21] MEDS: DILTIAZEM 60 MG TABLET PO SCH ×4 (08:16→21:10)
[2022-03-21] MEDS: FUROSEMIDE 40 MG TABLET PO SCH (08:16)
[2022-03-21] MEDS: OMEGA 3 ACID ETHYL ESTERS 1 GM CAPSULE PO SCH (08:16)
[2022-03-21] MEDS: ENOXAPARIN 80 MG/0.8 ML SYRINGE SUBCUT SCH ×2 (08:17→21:10)
[2022-03-21] MEDS: LEVOFLOXACIN INJ 750 MG/150 ML PREMIX IV SCH (12:27)
[2022-03-21] MEDS: FAT EMULSION 20% 250 ML IV SCH (14:22)
[2022-03-21] MEDS: MULTIVITAMIN INJ 10 ML in AMINO ACIDS/DEXT/LYTES 4.25-5% 2,000 ML IV SCH (15:11)
[2022-03-21] MEDS: risperiDONE 0.5 MG TABLET PO SCH (17:34)
[2022-03-22 06:00] LABS: Basophils # 0.1 10*3/uL (0.0-0.2); Basophils % 1.2 % (0.0-0.8); Eosinophils # 0.3 10*3/uL (0.0-0.87); Eosinophils % 3.2 % (0.00-10.9); Hemoglobin 13.7 GM/DL (14.0-18.0); Immature Granulocytes % 1.3 %; Immature Granulocytes Absolute 0.13 #; Lymphocytes # 1.8 10*3/uL (1.4-4.0); Lymphocytes % 17.9 % (21.2-54.2); Mean Corpuscular HGB Conc 33.4 GM/DL (32-36); Mean Platelet Volume 9.4 FL (9.6-12.0); Monocytes % 10.5 % (1.7-12.7); Neutrophils % 65.9 % (38.7-73.9); Platelet Count 472 T/CUMM (130-400); Red Blood Count 4.27 MC/CUMM (3.8-5.5); Red Cell Distribution Width 12.5 % (9.3-17.3); White Blood Count 9.8 T/CUMM (4-12)
[2022-03-22 06:22] LABS: Calcium 8.2 MG/DL (8.5-10.1); Osmolality,Calculated 280.1 MOS/KG (273-304)
[2022-03-22] MEDS: DILTIAZEM 60 MG TABLET PO SCH ×4 (09:25→20:20)
[2022-03-22] MEDS: ATORVASTATIN 20 MG TABLET PO SCH (09:26)
[2022-03-22] MEDS: METOPROLOL TARTRATE 25 MG TABLET PO SCH ×2 (09:26→20:20)
[2022-03-22] MEDS: PANTOPRAZOLE 40 MG VIAL IV SCH ×2 (09:26→20:20)
[2022-03-22] MEDS: FUROSEMIDE 40 MG TABLET PO SCH (09:26)
[2022-03-22] MEDS: guaiFENesin/DM ER 600-30 MG TABLET PO SCH ×2 (09:26→20:20)
[2022-03-22] MEDS: ENOXAPARIN 80 MG/0.8 ML SYRINGE SUBCUT SCH ×2 (09:27→20:20)
[2022-03-22] MEDS: OMEGA 3 ACID ETHYL ESTERS 1 GM CAPSULE PO SCH (09:28)
[2022-03-22] MEDS: LEVOFLOXACIN INJ 750 MG/150 ML PREMIX IV SCH (15:44)
[2022-03-22] MEDS: risperiDONE 0.5 MG TABLET PO SCH (17:22)
[2022-03-23] MEDS: ENOXAPARIN 80 MG/0.8 ML SYRINGE SUBCUT SCH ×2 (08:06→22:08)
[2022-03-23] MEDS: PANTOPRAZOLE 40 MG VIAL IV SCH ×2 (08:06→22:09)
[2022-03-23] MEDS: ATORVASTATIN 20 MG TABLET PO SCH (11:03)
[2022-03-23] MEDS: OMEGA 3 ACID ETHYL ESTERS 1 GM CAPSULE PO SCH (11:03)
[2022-03-23] MEDS: METOPROLOL TARTRATE 25 MG TABLET PO SCH ×2 (11:03→22:09)
[2022-03-23] MEDS: DILTIAZEM 60 MG TABLET PO SCH ×4 (11:03→22:09)
[2022-03-23] MEDS: FUROSEMIDE 40 MG TABLET PO SCH (11:03)
[2022-03-23] MEDS: guaiFENesin/DM ER 600-30 MG TABLET PO SCH ×2 (11:04→22:09)
[2022-03-23] MEDS: LEVOFLOXACIN INJ 750 MG/150 ML PREMIX IV SCH (12:16)
[2022-03-23] MEDS: risperiDONE 0.5 MG TABLET PO SCH (17:28)
[2022-03-24 04:46] LABS: Basophils # 0.1 10*3/uL (0.0-0.2); Eosinophils # 0.4 10*3/uL (0.0-0.87); Eosinophils % 3.4 % (0.00-10.9); Hematocrit 41.1 VOL% (42.0-52.0); Hemoglobin 13.4 GM/DL (14.0-18.0); Immature Granulocytes % 1.1 %; Immature Granulocytes Absolute 0.12 #; Lymphocytes # 1.9 10*3/uL (1.4-4.0); Lymphocytes % 17.1 % (21.2-54.2); Mean Corpuscular HGB Conc 32.6 GM/DL (32-36); Mean Corpuscular Volume 97.9 FL (87-102); Mean Platelet Volume 9.4 FL (9.6-12.0); Monocytes # 1.1 10*3/uL (0.11-0.8); Neutrophils % 67.4 % (38.7-73.9); Platelet Count 464 T/CUMM (130-400); Red Cell Distribution Width 12.7 % (9.3-17.3); White Blood Count 10.9 T/CUMM (4-12)
[2022-03-24 05:28] LABS: Calcium 8.5 MG/DL (8.5-10.1); Osmolality,Calculated 276.1 MOS/KG (273-304)
[2022-03-24] MEDS: DILTIAZEM 60 MG TABLET PO SCH ×4 (09:32→22:13)
[2022-03-24] MEDS: OMEGA 3 ACID ETHYL ESTERS 1 GM CAPSULE PO SCH (09:32)
[2022-03-24] MEDS: guaiFENesin/DM ER 600-30 MG TABLET PO SCH ×2 (09:32→22:13)
[2022-03-24] MEDS: ENOXAPARIN 80 MG/0.8 ML SYRINGE SUBCUT SCH ×2 (09:32→22:12)
[2022-03-24] MEDS: ATORVASTATIN 20 MG TABLET PO SCH (09:32)
[2022-03-24] MEDS: METOPROLOL TARTRATE 25 MG TABLET PO SCH (09:32)
[2022-03-24] MEDS: PANTOPRAZOLE 40 MG VIAL IV SCH ×2 (09:32→23:01)
[2022-03-24] MEDS: FUROSEMIDE 40 MG TABLET PO SCH (09:32)
[2022-03-24] MEDS ORDERED: METOPROLOL TARTRATE 25 MG TABLET PO ONE (10:48)
[2022-03-24] MEDS: LEVOFLOXACIN 750 MG TABLET PO SCH (11:42)
[2022-03-24] MEDS: risperiDONE 0.5 MG TABLET PO SCH (17:44)
[2022-03-24] MEDS: METOPROLOL TARTRATE 50 MG TABLET PO SCH (22:13)
[2022-03-25 04:20] LABS: Basophils # 0.1 10*3/uL (0.0-0.2); Basophils % 0.9 % (0.0-0.8); Eosinophils # 0.3 10*3/uL (0.0-0.87); Eosinophils % 2.2 % (0.00-10.9); Hematocrit 41.8 VOL% (42.0-52.0); Hemoglobin 13.6 GM/DL (14.0-18.0); Immature Granulocytes % 0.8 %; Immature Granulocytes Absolute 0.09 #; Lymphocytes # 2.2 10*3/uL (1.4-4.0); Lymphocytes % 19.3 % (21.2-54.2); Mean Corpuscular HGB Conc 32.5 GM/DL (32-36); Mean Corpuscular Volume 98.6 FL (87-102); Mean Platelet Volume 9.5 FL (9.6-12.0); Monocytes # 1.3 10*3/uL (0.11-0.8); Neutrophils % 65.8 % (38.7-73.9); Platelet Count 405 T/CUMM (130-400); Red Blood Count 4.24 MC/CUMM (3.8-5.5); Red Cell Distribution Width 12.7 % (9.3-17.3); White Blood Count 11.4 T/CUMM (4-12)
[2022-03-25 04:46] LABS: Calcium 9.1 MG/DL (8.5-10.1); Osmolality,Calculated 289.3 MOS/KG (273-304); Potassium 3.8 MMOL/L (3.5-5.1)
[2022-03-25] MEDS: ACETAMINOPHEN 325 MG TABLET PO PRN ×2 (06:40→14:07)
[2022-03-25] MEDS: DILTIAZEM 60 MG TABLET PO SCH ×2 (09:51→13:06)
[2022-03-25] MEDS: OMEGA 3 ACID ETHYL ESTERS 1 GM CAPSULE PO SCH (09:51)
[2022-03-25] MEDS: guaiFENesin/DM ER 600-30 MG TABLET PO SCH (09:51)
[2022-03-25] MEDS: LEVOFLOXACIN 750 MG TABLET PO SCH (09:51)
[2022-03-25] MEDS: ATORVASTATIN 20 MG TABLET PO SCH (09:51)
[2022-03-25] MEDS: ENOXAPARIN 80 MG/0.8 ML SYRINGE SUBCUT SCH (09:52)
[2022-03-25] MEDS: METOPROLOL TARTRATE 50 MG TABLET PO SCH (09:52)
[2022-03-25] MEDS: PANTOPRAZOLE 40 MG VIAL IV SCH (09:52)
[2022-03-25 12:17] VITALS: BP 101/65
== END 2022-03-25 14:15 | disposition swing bed (61) | DRG 329 ==
LOC: EDBD → EDUNIT# → N.ED 23:20 → N.3E 23:37 → N.CC 03-07 17:53 → N.3E 03-12 13:55 → N.TELEN 03-13 14:19
PROVIDERS: ADMIT Surgery; ATTEND Surgery

== ENCOUNTER 2022-04-04 08:41 | Inpatient (IN) ==
[2022-04-04] MEDS: LACTATED RINGERS 1,000 ML IV SCH ×2 (09:30→11:44)
[2022-04-04] MEDS ORDERED: LEVOFLOXACIN INJ 500 MG/100 ML PREMIX IV ONE (09:40)
[2022-04-04] MEDS ORDERED: ESMOLOL 100 MG/10 ML VIAL IV ONE (11:49)
[2022-04-04] MEDS ORDERED: propofoL 200 MG/20 ML VIAL IV ONE (11:49)
[2022-04-04] MEDS ORDERED: LIDOCAINE 2% 5 ML VIAL ONE (11:49)
[2022-04-04] MEDS ORDERED: PHENYLEPHRINE 1 MG/10 ML SYRINGE IV ONE (11:49)
[2022-04-04] MEDS ORDERED: ETOMIDATE 20 MG/10 ML VIAL IV ONE (11:49)
[2022-04-04] MEDS ORDERED: DILTIAZEM 25 MG/5 ML VIAL IV ONE ×2 (13:03→14:26)
[2022-04-04] MEDS ORDERED: DOCUSATE SODIUM 100 MG CAPSULE PO PRN (15:28)
[2022-04-04] MEDS ORDERED: hydrALAZINE 20 MG/1 ML VIAL IV PRN (15:28)
[2022-04-04 16:28] LABS: Basophils % 0.4 % (0.0-0.8); Eosinophils # 0.1 10*3/uL (0.0-0.87); Eosinophils % 0.8 % (0.00-10.9); Hematocrit 40.9 VOL% (42.0-52.0); Hemoglobin 13.2 GM/DL (14.0-18.0); Immature Granulocytes % 0.7 %; Immature Granulocytes Absolute 0.07 #; Lymphocytes # 1.6 10*3/uL (1.4-4.0); Lymphocytes % 16.4 % (21.2-54.2); Mean Corpuscular HGB Conc 32.3 GM/DL (32-36); Mean Corpuscular Volume 99.3 FL (87-102); Mean Platelet Volume 9.5 FL (9.6-12.0); Neutrophils % 71.7 % (38.7-73.9); Platelet Count 299 T/CUMM (130-400); Red Blood Count 4.12 MC/CUMM (3.8-5.5); Red Cell Distribution Width 13.9 % (9.3-17.3)
[2022-04-04] MEDS: DILTIAZEM INJ 100 MG in SODIUM CHLORIDE 0.9% 100 ML IV SCH (16:28)
[2022-04-04 16:44] LABS: Calcium 8.4 MG/DL (8.5-10.1); Osmolality,Calculated 293.8 MOS/KG (273-304); Potassium 3.6 MMOL/L (3.5-5.1)
[2022-04-04 17:01] LABS: Thyroid Stimulating Hormone 0.871 uIU/ml (0.358-3.74)
[2022-04-04] MEDS: DILTIAZEM CD 120 MG CAPSULE PO SCH (22:00)
[2022-04-04] MEDS: ENOXAPARIN 80 MG/0.8 ML SYRINGE SUBCUT SCH (22:00)
[2022-04-04] MEDS: ASCORBIC ACID 500 MG TABLET PO SCH (22:08)
[2022-04-05 05:38] LABS: Basophils % 0.4 % (0.0-0.8); Eosinophils # 0.1 10*3/uL (0.0-0.87); Eosinophils % 0.7 % (0.00-10.9); Hematocrit 40.9 VOL% (42.0-52.0); Hemoglobin 13.4 GM/DL (14.0-18.0); Immature Granulocytes % 0.6 %; Immature Granulocytes Absolute 0.06 #; Lymphocytes # 1.7 10*3/uL (1.4-4.0); Lymphocytes % 16.6 % (21.2-54.2); Mean Corpuscular HGB Conc 32.8 GM/DL (32-36); Mean Platelet Volume 9.5 FL (9.6-12.0); Monocytes # 0.9 10*3/uL (0.11-0.8); Monocytes % 8.2 % (1.7-12.7); Neutrophils % 73.5 % (38.7-73.9); Platelet Count 275 T/CUMM (130-400); Red Blood Count 4.13 MC/CUMM (3.8-5.5); White Blood Count 10.5 T/CUMM (4-12)
[2022-04-05 05:53] LABS: Calcium 8.4 MG/DL (8.5-10.1); Osmolality,Calculated 293.8 MOS/KG (273-304); Potassium 3.7 MMOL/L (3.5-5.1)
[2022-04-05] MEDS ORDERED: FLUCONAZOLE INJ 200 MG/100 ML PREMIX IV ONE (07:19)
[2022-04-05] MEDS: DILTIAZEM CD 120 MG CAPSULE PO SCH (09:00)
[2022-04-05] MEDS: METOPROLOL SUCCINATE XL 50 MG TABLET PO SCH (09:00)
[2022-04-05] MEDS: ASCORBIC ACID 500 MG TABLET PO SCH ×2 (09:00→20:21)
[2022-04-05] MEDS: FLUCONAZOLE 100 MG TABLET PO SCH (09:00)
[2022-04-05] MEDS: DILTIAZEM INJ 100 MG in SODIUM CHLORIDE 0.9% 100 ML IV SCH ×2 (10:38→19:44)
[2022-04-05] MEDS: LACTATED RINGERS 1,000 ML IV SCH (10:39)
[2022-04-05] MEDS ORDERED: DILTIAZEM 60 MG TABLET PO SCH (13:00)
[2022-04-05] MEDS: ENOXAPARIN 80 MG/0.8 ML SYRINGE SUBCUT SCH (20:21)
[2022-04-06 05:24] LABS: Basophils # 0.1 10*3/uL (0.0-0.2); Basophils % 0.4 % (0.0-0.8); Eosinophils # 0.1 10*3/uL (0.0-0.87); Eosinophils % 1.1 % (0.00-10.9); Hematocrit 44.9 VOL% (42.0-52.0); Hemoglobin 14.1 GM/DL (14.0-18.0); Immature Granulocytes % 0.4 %; Immature Granulocytes Absolute 0.04 #; Lymphocytes # 2.5 10*3/uL (1.4-4.0); Lymphocytes % 22.1 % (21.2-54.2); Mean Corpuscular HGB Conc 31.4 GM/DL (32-36); Mean Corpuscular Volume 101.1 FL (87-102); Mean Platelet Volume 9.7 FL (9.6-12.0); Platelet Count 288 T/CUMM (130-400); Red Blood Count 4.44 MC/CUMM (3.8-5.5); Red Cell Distribution Width 14.1 % (9.3-17.3); White Blood Count 11.4 T/CUMM (4-12)
[2022-04-06 05:29] LABS: Calcium 8.6 MG/DL (8.5-10.1); Osmolality,Calculated 298.3 MOS/KG (273-304); Potassium 3.7 MMOL/L (3.5-5.1)
[2022-04-06] MEDS: DILTIAZEM INJ 100 MG in SODIUM CHLORIDE 0.9% 100 ML IV SCH ×2 (05:31→15:43)
[2022-04-06] MEDS: ONDANSETRON 4 MG/2 ML VIAL IV PRN (08:33)
[2022-04-06] MEDS ORDERED: FLUCONAZOLE 100 MG TABLET PO SCH (09:00)
[2022-04-06] MEDS: DILTIAZEM 60 MG TABLET PO SCH ×4 (11:46→20:25)
[2022-04-06] MEDS: FLUCONAZOLE 100 MG TABLET PO SCH (11:47)
[2022-04-06] MEDS: METOPROLOL SUCCINATE XL 50 MG TABLET PO SCH (11:47)
[2022-04-06] MEDS: ASCORBIC ACID 500 MG TABLET PO SCH ×2 (12:37→20:25)
[2022-04-06] MEDS: LACTATED RINGERS 1,000 ML IV SCH (16:18)
[2022-04-06] MEDS ORDERED: ACETAMINOPHEN 325 MG TABLET PO PRN (19:38)
[2022-04-06] MEDS: ENOXAPARIN 80 MG/0.8 ML SYRINGE SUBCUT SCH (20:25)
[2022-04-07] MEDS: DILTIAZEM INJ 100 MG in SODIUM CHLORIDE 0.9% 100 ML IV SCH ×2 (03:37→17:00)
[2022-04-07 04:42] LABS: Calcium 8.8 MG/DL (8.5-10.1); Osmolality,Calculated 295.6 MOS/KG (273-304); Potassium 3.9 MMOL/L (3.5-5.1)
[2022-04-07 09:29] LABS: INR 1.2; PT Patient Result 12.8 SECS (10.1-12.1)
[2022-04-07] MEDS: ONDANSETRON 4 MG/2 ML VIAL IV PRN (10:37)
[2022-04-07] MEDS ORDERED: fentaNYL 100 MCG/2 ML VIAL IV ONE (11:33)
[2022-04-07] MEDS ORDERED: MIDAZOLAM 2 MG/2 ML VIAL IV ONE (11:33)
[2022-04-07] MEDS: METOPROLOL SUCCINATE XL 50 MG TABLET PO SCH (13:10)
[2022-04-07] MEDS: FLUCONAZOLE 100 MG TABLET PO SCH (13:11)
[2022-04-07] MEDS: ASCORBIC ACID 500 MG TABLET PO SCH ×2 (13:11→22:11)
[2022-04-07] MEDS: DILTIAZEM 60 MG TABLET PO SCH ×2 (13:11→13:36)
[2022-04-07] MEDS: SODIUM CHLORIDE 0.9% 1,000 ML IV SCH (16:11)
[2022-04-07] MEDS ORDERED: ENOXAPARIN 80 MG/0.8 ML SYRINGE SUBCUT SCH (17:00)
[2022-04-07] MEDS: DILTIAZEM 90 MG TABLET PO SCH ×3 (17:02→22:11)
[2022-04-07] MEDS: METOPROLOL TARTRATE 50 MG TABLET PO SCH ×2 (17:03→22:11)
[2022-04-08] MEDS: SODIUM CHLORIDE 0.9% 1,000 ML IV SCH (00:45)
[2022-04-08 06:24] LABS: Basophils % 0.4 % (0.0-0.8); Eosinophils # 0.3 10*3/uL (0.0-0.87); Eosinophils % 2.4 % (0.00-10.9); Hematocrit 40.1 VOL% (42.0-52.0); Hemoglobin 12.7 GM/DL (14.0-18.0); Immature Granulocytes % 0.5 %; Immature Granulocytes Absolute 0.06 #; Lymphocytes # 2.2 10*3/uL (1.4-4.0); Lymphocytes % 20.1 % (21.2-54.2); Mean Corpuscular HGB Conc 31.7 GM/DL (32-36); Mean Corpuscular Volume 102.6 FL (87-102); Mean Platelet Volume 10.3 FL (9.6-12.0); Monocytes # 0.9 10*3/uL (0.11-0.8); Monocytes % 7.9 % (1.7-12.7); Neutrophils % 68.7 % (38.7-73.9); Platelet Count 255 T/CUMM (130-400); Red Blood Count 3.91 MC/CUMM (3.8-5.5); Red Cell Distribution Width 14.3 % (9.3-17.3)
[2022-04-08 06:32] LABS: Calcium 8.1 MG/DL (8.5-10.1); Osmolality,Calculated 300.1 MOS/KG (273-304); Potassium 3.9 MMOL/L (3.5-5.1)
[2022-04-08] MEDS ORDERED: METOPROLOL TARTRATE 50 MG TABLET PO SCH (09:00)
[2022-04-08] MEDS: METOPROLOL TARTRATE 50 MG TABLET PO SCH ×2 (11:20→21:33)
[2022-04-08] MEDS: ATORVASTATIN 20 MG TABLET PO SCH (11:20)
[2022-04-08] MEDS: DILTIAZEM 90 MG TABLET PO SCH ×4 (11:20→21:33)
[2022-04-08] MEDS: ASCORBIC ACID 500 MG TABLET PO SCH ×2 (11:20→21:33)
[2022-04-08] MEDS: FLUCONAZOLE 100 MG TABLET PO SCH (11:20)
[2022-04-08] MEDS: LACTULOSE 20 GM/30 ML UDCUP PO SCH ×3 (11:21→21:33)
[2022-04-08] MEDS: DEXTROSE 5% 1,000 ML IV SCH ×2 (15:10→21:39)
[2022-04-08] MEDS: DILTIAZEM INJ 100 MG in SODIUM CHLORIDE 0.9% 100 ML IV SCH (18:17)
[2022-04-09 05:47] LABS: Calcium 7.8 MG/DL (8.5-10.1); Osmolality,Calculated 293.6 MOS/KG (273-304); Potassium 3.3 MMOL/L (3.5-5.1)
[2022-04-09 08:53] LABS: Basophils % 0.2 % (0.0-0.8); Eosinophils # 0.3 10*3/uL (0.0-0.87); Eosinophils % 2.6 % (0.00-10.9); Hematocrit 40.5 VOL% (42.0-52.0); Hemoglobin 13.3 GM/DL (14.0-18.0); Immature Granulocytes % 0.7 %; Immature Granulocytes Absolute 0.09 #; Lymphocytes # 2.2 10*3/uL (1.4-4.0); Lymphocytes % 18.2 % (21.2-54.2); Mean Corpuscular HGB Conc 32.8 GM/DL (32-36); Mean Platelet Volume 10.2 FL (9.6-12.0); Monocytes # 0.9 10*3/uL (0.11-0.8); Monocytes % 7.8 % (1.7-12.7); Neutrophils % 70.5 % (38.7-73.9); Platelet Count 207 T/CUMM (130-400); Red Blood Count 4.09 MC/CUMM (3.8-5.5); Red Cell Distribution Width 13.7 % (9.3-17.3)
[2022-04-09] MEDS: POTASSIUM CHLORIDE RIDER 10 MEQ/100 ML PREMIX IV PRN ×4 (10:02→14:57)
[2022-04-09] MEDS ORDERED: DIAZEPAM 5 MG TABLET PO ONE (10:31)
[2022-04-09] MEDS ORDERED: GLUCAGON 1 MG VIAL ONE (11:34)
[2022-04-09] MEDS ORDERED: GLUCAGON 1 MG VIAL IV ONE (12:13)
[2022-04-09] MEDS: LACTULOSE 20 GM/30 ML UDCUP PO SCH ×3 (12:34→20:13)
[2022-04-09] MEDS: DILTIAZEM 90 MG TABLET PO SCH ×4 (12:34→20:13)
[2022-04-09 15:55] LABS: Arterial Base Excess iSTAT -3 MMOL/L (-2.5-2.5); Arterial Bicarbonate iSTAT 21.7 MMOL/L (20-26); Arterial O2 Saturation iSTAT 95 % (95-100); Arterial PCO2 iSTAT 36 MM HG (35-48); Arterial PO2 iSTAT 74 MM HG (80-95); Arterial Total CO2 iSTAT 23 MMO/L (23-27); Arterial pH iSTAT 7.389 (7.35-7.45)
[2022-04-09] MEDS: FLUCONAZOLE 100 MG TABLET PO SCH (16:23)
[2022-04-09] MEDS: ATORVASTATIN 20 MG TABLET PO SCH (16:24)
[2022-04-09] MEDS: METOPROLOL TARTRATE 50 MG TABLET PO SCH ×2 (16:24→20:13)
[2022-04-09] MEDS: ASCORBIC ACID 500 MG TABLET PO SCH ×2 (16:24→20:13)
[2022-04-09 18:00] LABS: Calcium Oxalate Crystals,Urine Occasional /HPF (Few); Mucus,Urine Many /LPF (Occasional); RBC,Urine 12 /HPF (0-4)
[2022-04-09 18:01] LABS: Bilirubin,Urine Negative (Negative); Blood, Urine Trace mg/dL (Negative); Glucose,Urine (UA) Negative (Negative); Ketones,Urine Negative (Negative); Nitrite,Urine Negative (Negative); Protein,Urine Trace mg/dL (Negative); Urine Appearance Clear (Clear); Urine Color Yellow (Yellow); Urine Specific Gravity 1.025 (1.001-1.035); Urine pH 5.5 (4.5-8.0)
[2022-04-09] MEDS: DILTIAZEM INJ 100 MG in SODIUM CHLORIDE 0.9% 100 ML IV SCH (18:18)
[2022-04-09] MEDS: DEXTROSE 5% 1,000 ML IV SCH (18:31)
[2022-04-10] MEDS: DEXTROSE 5% 1,000 ML IV SCH ×3 (00:22→14:31)
[2022-04-10 05:37] LABS: Basophils % 0.2 % (0.0-0.8); Eosinophils # 0.1 10*3/uL (0.0-0.87); Eosinophils % 0.5 % (0.00-10.9); Hematocrit 43.3 VOL% (42.0-52.0); Hemoglobin 13.9 GM/DL (14.0-18.0); Immature Granulocytes % 0.6 %; Lymphocytes # 1.7 10*3/uL (1.4-4.0); Mean Corpuscular HGB Conc 32.1 GM/DL (32-36); Mean Corpuscular Volume 100.9 FL (87-102); Mean Platelet Volume 9.6 FL (9.6-12.0); Monocytes # 1.2 10*3/uL (0.11-0.8); Monocytes % 6.9 % (1.7-12.7); Neutrophils % 81.8 % (38.7-73.9); Platelet Count 174 T/CUMM (130-400); Red Blood Count 4.29 MC/CUMM (3.8-5.5); Red Cell Distribution Width 13.6 % (9.3-17.3); White Blood Count 17.4 T/CUMM (4-12)
[2022-04-10 05:48] LABS: Calcium 8.1 MG/DL (8.5-10.1); Osmolality,Calculated 266.5 MOS/KG (273-304); Potassium 4.1 MMOL/L (3.5-5.1)
[2022-04-10] MEDS ORDERED: DIGOXIN 0.5 MG/2 ML AMP IV ONE (06:30)
[2022-04-10] MEDS: ATORVASTATIN 20 MG TABLET PO SCH (08:14)
[2022-04-10] MEDS: ASCORBIC ACID 500 MG TABLET PO SCH (08:14)
[2022-04-10] MEDS: DILTIAZEM 90 MG TABLET PO SCH ×2 (08:14→14:25)
[2022-04-10] MEDS: FLUCONAZOLE 100 MG TABLET PO SCH (08:14)
[2022-04-10] MEDS: METOPROLOL TARTRATE 50 MG TABLET PO SCH (08:14)
[2022-04-10 08:15] VITALS: BP 138/73
[2022-04-10 10:16] LABS: Albumin 2.6 G/DL (3.4-5.0); Bilirubin,Total 1.1 MG/DL (0.20-1.00); Calcium 8.3 MG/DL (8.5-10.1); Osmolality,Calculated 267.4 MOS/KG (273-304); Potassium 3.6 MMOL/L (3.5-5.1); Total Protein 6.4 G/DL (6.4-8.2)
[2022-04-10] MEDS ORDERED: APIXABAN 5 MG TABLET PO SCH (10:30)
[2022-04-10] MEDS: LACTULOSE 20 GM/30 ML UDCUP PO SCH (10:43)
[2022-04-10 10:55] LABS: Hepatitis B Core IgM Quant 0.06 Index; Hepatitis B Surface Ag Quant < 0.10 Index; Hepatitis B Surface Ag Result Non-Reactive (NonReactive); Hepatitis C Virus Ab Quant 0.03 Index; Hepatitis C Virus Ab Result Non-Reactive (NonReactive)
[2022-04-10] MEDS ORDERED: DIGOXIN 0.125 MG TABLET PO SCH (13:00)
[2022-04-10] MEDS ORDERED: DEXAMETHASONE 4 MG/1 ML VIAL IV SCH (13:30)
[2022-04-10] MEDS ORDERED: LORazepam 2 MG/1 ML VIAL IV PRN (13:51)
[2022-04-10] MEDS ORDERED: MORPHINE 2 MG/1 ML SYRINGE IV PRN (13:51)
[2022-04-11] MEDS ORDERED: OMEGA 3 ACID ETHYL ESTERS 1 GM CAPSULE PO SCH (09:00)
== END 2022-04-10 18:00 | disposition hospice, home (50) | DRG 308 ==
LOC: N.GILAB 08:41 → SUATTDRO 14:50 → N.TELES 14:50 → N.ICU 04-09 16:03 → N.CC 04-10 11:50
PROVIDERS: ADMIT Internal Medicine; ATTEND Internal Medicine